=== PATIENT | female | born 1960 | race Caucasian/White ===

== ENCOUNTER 2021-03-31 16:51 | Inpatient (IN) | payer BC ==
[~2021-03-31] VITALS: Ht 160 cm; Wt 59.1 kg
[2021-03-31] MEDS ORDERED: LOSA50TA88 PO (17:03)
[2021-03-31] MEDS ORDERED: LEVO50TA5 PO (17:03)
[2021-03-31] MEDS ORDERED: NAPROXEN 250 MG TAB PO ONE (18:25)
[2021-03-31] MEDS ORDERED: ONDANSETRON 4 MG ORAL DISINTEGRATING TAB PO ONE (18:25)
--- NOTE | 2021-03-31 20:05 | REP ---
INDICATION: fall/trauma COMPARISON: None. TECHNIQUE: Frontal view of the pelvis with neutral and frog lateral views of the right hip. FINDINGS: Pelvis appears intact. Left hip demonstrates moderate arthritic degenerative changes. The right hip demonstrates moderate early advanced arthritic changes and a subtle impaction fracture through the femoral neck cannot be excluded. IMPRESSION: Degenerative changes to the bilateral hips (right greater than left). Cannot exclude subtle impaction fracture through the right femoral neck. <Electronically signed by Henrry Gimenez > 03/31/212000
--- NOTE | 2021-03-31 20:33 | REPVR ---
PROCEDURE INFORMATION: Exam: CT Right Lower Extremity Without Contrast, Hip Exam date and time: 03/31/2021 8:16 PM Age: 60 years old Clinical indication: Injury or trauma; Fall; Blunt trauma; Hip; Right TECHNIQUE: Imaging protocol: CT of the Right lower extremity without contrast was performed. Exam focused on the hip. Radiation optimization: All CT scans at this facility use at least one of these dose optimization techniques: automated exposure control; mA and/or kV adjustment per patient size (includes targeted exams where dose is matched to clinical indication); or iterative reconstruction. COMPARISON: CR Hip,AP,LAT to include Pelvis 03/31/2021 5:31 PM FINDINGS: Bones/joints: There is osteophyte formation and cystic degenerative change of the right acetabulum. There is an acute subcapital fracture right proximal femur involving the right femoral neck especially at the posterior cortex. There is mild impaction at the fracture, however, very little displacement or separation. Soft tissues: Soft tissue swelling. Urinary bladder: Normal appearing urinary bladder. IMPRESSION: Subcapital fracture right proximal femur with mild impaction. Electronically signed by: Jose C Gustafson On 03/31/2021 20:33:02 PM
[2021-03-31 21:21] LABS: BASO % 0.2 % (0.0-1.0); HEMATOCRIT 35.2 % (36.0-47.0); HEMOGLOBIN 11.9 g/dl (12.0-15.5); LYMPH # 0.8 10^3/uL (1.5-5.0); MEAN CORPUSCULAR HEMOGLOBIN 29.3 pg (27.0-33.0); MEAN CORPUSCULAR HGB CONC 33.8 g/dl (32.0-36.5); MEAN CORPUSCULAR VOLUME 86.7 fl (80.0-96.0); MONO # 0.5 10^3/uL (0.0-0.8); MONO % 4.9 % (2.0-8.0); NEUTROPHILS % 86.5 % (36.0-66.0); PLATELET COUNT, AUTOMATED 269 10^3/uL (150-450); RED BLOOD COUNT 4.06 10^6/uL (4.00-5.40); WHITE BLOOD COUNT 10.4 10^3/uL (4.0-10.0)
[2021-03-31 21:42] LABS: ALBUMIN 4.7 GM/DL (3.2-5.2); ALT/SGPT 24 U/L (12-78); BILIRUBIN,DIRECT 0.2 MG/DL (0.0-0.2); BILIRUBIN,TOTAL 0.8 MG/DL (0.2-1.0); BLOOD UREA NITROGEN 8 MG/DL (7-18); CALCIUM LEVEL 9.4 MG/DL (8.5-10.1); CARBON DIOXIDE LEVEL 25 MEQ/L (21-32); CHLORIDE LEVEL 101 MEQ/L (98-107); CREATININE FOR GFR 0.58 MG/DL (0.55-1.30); GLOMERULAR FILTRATION RATE > 60.0 (>51); GLUCOSE, FASTING 114 MG/DL (70-100); POTASSIUM SERUM 3.9 MEQ/L (3.5-5.1); SODIUM LEVEL 134 MEQ/L (136-145); TOTAL PROTEIN 7.5 GM/DL (6.4-8.2)
[2021-03-31] MEDS ORDERED: MOM 30ML SUSPENSION UDC PO PRN (21:50)
[2021-03-31] MEDS ORDERED: PERCOCET 5MG/325MG TAB PO PRN (21:50)
[2021-03-31] MEDS ORDERED: MAALOX 30 ML SUSP *UDC PO PRN (21:50)
--- NOTE | 2021-03-31 22:03 | HPEPDOC ---
[facility] Medical History & Physical Date of Admission March 31, 2021 Date of Service: March 31, 2021 History and Physical CHIEF COMPLAINT: R hip pain HISTORY OF PRESENT ILLNESS: 60 yo F with PMHx of HTN, hypothyroidism, presented to ER with R hip pain after falling while walking on uneven ground. She denies head injury, LOC, chest pain, SOB, palpitations, or lightheadedness at the time of the fall. Her pain is well controlled with morphine. CT hip imaging shows a R proximal femur fracture with mild impaction. Orthopedic surgery consulted from the ER. Patient will be admitted to hospitalist service for medical intake and pain control. PAST MEDICAL HISTORY: HTN Hypothyroidism PAST SURGICAL HISTORY: R ovarian cyst removal SOCIAL HISTORY: denies smoking, illicits social etoh use FAMILY HISTORY: reviewed with patient, no relevant hx identified ALLERGIES: Please see below. REVIEW OF SYSTEMS: 10 point ROS completed, relevant findings are noted in the HPI. HOME MEDICATIONS: Please see below. PHYSICAL EXAMINATION: VITAL SIGNS: please see below GENERAL APPEARANCE: calm, comfortable HEENT: PERRLA, EOMI. CARDIOVASCULAR: RRR, normal S1, S2. LUNGS: CTAB, no wheeze, no rales. ABDOMEN: soft, non tender, non distended. MUSCULOSKELETAL: R hip pain, no rotation of leg. EXTREMITIES: pulses 2+ bilaterally, no cyanosis, no swelling. NEUROLOGICAL: no focal neuro deficits. CN2-12 intact. R leg movement limited by pain PSYCHIATRIC: calm, pleasant, appropriate LABORATORY DATA: See below. IMAGING: CT hip wo contrast (03/31/21): FINDINGS: Bones/joints: There is osteophyte formation and cystic degenerative change of the right acetabulum. There is an acute subcapital fracture right proximal femur involving the right femoral neck especially at the posterior cortex. There is mild impaction at the fracture, however, very little displacement or separation. Soft tissues: Soft tissue swelling. Urinary bladder: Normal appearing urinary bladder. IMPRESSION: Subcapital fracture right proximal femur with mild impaction Hip/Pelvis XR (03/31/21): Degenerative changes to the bilateral hips (right greater than left). Cannot exclude subtle impaction fracture through the right femoral neck. MICROBIOLOGY: Please see below. ASSESSMENT: 60 yo F with PMHx of HTN, hypothyroidism, admitted with R proximal femoral neck fracture. . PLAN: R femur fracture - XR, CT hip showing proximal femoral neck fracture - mild leukocytosis, likely reactive - pain control morphine, percocet - Orthopedic surgery consultation - NPO after midnight - IVF stated - PT/OT post op Hypertension - BP slightly elevated likely 2/2 pain - resume home dose losartan Hypothyroidism - resume home levothyroxine DVT ppx: SCDs. TEDs. Chemoppx after surgery Code status: FULL CODE Dispo: pending clinical improvement. Vital Signs Vital Signs Date Time Temp Pulse Resp B/P (MAP) Pulse Ox O2 Delivery O2 Flow Rate FiO2 03/31/21 17:23 03/31/21 16:51 97.8 96 18 98 Room Air Laboratory Data Labs 24H Laboratory Tests 2 03/31/21 20:34: Immature Granulocyte % (Auto) 0.4, Neutrophils (%) (Auto) 86.5H, Lymphocytes (%) (Auto) 8.0L, Monocytes (%) (Auto) 4.9, Eosinophils (%) (Auto) 0.0, Basophils (%) (Auto) 0.2, Neutrophils # (Auto) 9.0H, Lymphocytes # (Auto) 0.8L, Monocytes # (Auto) 0.5, Eosinophils # (Auto) 0.0, Basophils # (Auto) 0.0, Nucleated Red Blood Cells % (auto) 0.0, Anion Gap 8, Glomerular Filtration Rate > 60.0, Calcium Level 9.4, Total Bilirubin 0.8, Direct Bilirubin 0.2, Aspartate Amino Transf (AST/SGOT) 21, Alanine Aminotransferase (ALT/SGPT) 24, Alkaline Phosphatase 72, Total Protein 7.5, Albumin 4.7, Albumin/Globulin Ratio 1.7, Coronavirus (COVID-19)(PCR) NEGATIVE CBC/BMP Laboratory Tests 03/31/21 20:34 Home Medications Scheduled Levothyroxine Sodium (Levothyroxine Sodium) 50 Mcg Tablet, 50 MCG PO QAM Losartan Potassium (Losartan Potassium) 50 Mg Tablet, 50 MG PO DAILY Allergies Coded Allergies: No Known Allergies (Unverified , 03/31/21) A-FIB/CHADSVASC A-FIB History Current/History of A-Fib/PAF?: No Current PO Anticoag Therapy: No TANYA MONIQUE MD March 31, 2021 22:03
[2021-03-31] MEDS: NS 1,000 ML IV SCH (22:24)
[2021-03-31 23:29] VITALS: BP 172/94
[2021-04-01] VITALS (7 sets, daily range): BP systolic 126–159; BP diastolic 82–92
[2021-04-01] MEDS: ACETAMINOPHEN TAB 650MG DOSE (2X325MG) PO PRN ×4 (00:02→22:30)
[2021-04-01] MEDS: KETOROLAC 30 MG/ML 1ML VIAL IV PRN ×2 (04:17→12:52)
[2021-04-01] MEDS: NS 1,000 ML IV SCH ×2 (04:47→12:51)
[2021-04-01] MEDS: LEVOTHYROXINE 50MCG TABLET (0.05MG) PO SCH (06:36)
[2021-04-01] MEDS: DOCUSATE SODIUM 100MG CAPSULE PO SCH ×2 (08:48→22:20)
[2021-04-01] MEDS: LOSARTAN 50MG TABLET PO SCH (08:48)
--- NOTE | 2021-04-01 10:44 | ER ---
ER CONSULTATION DATE: 03/31/2021 TIME OF CONSULT: 10 p.m. CONSULTING SERVICE: Orthopedic surgery. CONSULTING PHYSICIAN: Guy Gomez MD HISTORY OF PRESENT ILLNESS: This is a 60-year-old female who sustained a ground-level fall while hiking on March,. She sustained a right nondisplaced closed femoral neck fracture (Garden type 2). She had difficulty bearing weight after the injury and presented to [facility] Emergent Department for further evaluation and care. Orthopedic surgery was consulted for the aforementioned injury and indicated for right femoral neck closed reduction and percutaneous screw fixation. MEDICAL HISTORY: Includes hypertension, lumbago, hypothyroidism. SURGICAL HISTORY: Denied. SOCIAL HISTORY: She is a social drinker, nonsmoker, non-IV drug user. ALLERGIES: NONE. CURRENT MEDICATIONS: 1. Medication for hypertension. 2. Medication for hypothyroidism. REVIEW OF SYSTEMS: 14-point review of systems negative unless otherwise described in HPI above. PHYSICAL EXAMINATION: The patient is alert and oriented to person, time and placed. The patient had obligatory right hip flexion, external rotation, abduction right hip pain on presentation. She was otherwise neurovascularly intact to the right lower extremity. She had 5/5 motor strength to the EHL, FHL, tibialis anterior, gastrocnemius and peroneal musculature. She had sensation intact to light touch to deep and superficial peroneal, sural, saphenous and tibial nerve distributions. RADIOGRAPHS: AP pelvis radiographs demonstrate nondisplaced but complete right femoral neck fracture with minimal valgus impaction of the superior neck. I reviewed these images myself. CT scan confirms the above findings. IMPRESSION: 60-year-old female with right complete nondisplaced femoral neck fracture. PLAN: Given the patient's femoral neck fracture and pain with weightbearing and her active status, the patient is a good candidate for right hip closed reduction, percutaneous screw fixation when time and space available. Ideally this will happen within the next 48 hours. The patient will be optimized and admitted by the Hospitalist Service. She will likely undergo surgical intervention for the right hip fracture. Her care will be transferred to Dr. Eaton who has agreed to evaluate the patient and perform the necessary intervention as required.
--- NOTE | 2021-04-01 16:19 | IPNPDOC ---
Text Note Date of Service The patient was seen on 04/01/21. NOTE Subjective: -No acute complaints, pain well controlled Objective: VITAL SIGNS: please see below GENERAL APPEARANCE: calm, comfortable HEENT: PERRLA, EOMI. CARDIOVASCULAR: RRR, normal S1, S2. LUNGS: CTAB, no wheeze, no rales. ABDOMEN: soft, non tender, non distended. MUSCULOSKELETAL: R hip pain, no rotation of leg. EXTREMITIES: pulses 2+ bilaterally, no cyanosis, no swelling. NEUROLOGICAL: no focal neuro deficits. CN2-12 intact. R leg movement limited by pain PSYCHIATRIC: calm, pleasant, appropriate LABORATORY DATA: Reviewed IMAGING: CT hip wo contrast (03/31/21): FINDINGS: Bones/joints: There is osteophyte formation and cystic degenerative change of the right acetabulum. There is an acute subcapital fracture right proximal femur involving the right femoral neck especially at the posterior cortex. There is mild impaction at the fracture, however, very little displacement or separation. Soft tissues: Soft tissue swelling. Urinary bladder: Normal appearing urinary bladder. IMPRESSION: Subcapital fracture right proximal femur with mild impaction Hip/Pelvis XR (03/31/21): Degenerative changes to the bilateral hips (right greater than left). Cannot exclude subtle impaction fracture through the right femoral neck. MICROBIOLOGY: Please see below. ASSESSMENT: 60 yo F with PMHx of HTN, hypothyroidism, admitted for R proximal femoral neck fracture pending orthopedic surgery today. PLAN: R femur fracture - XR, CT hip showing proximal femoral neck fracture - mild leukocytosis, likely reactive - pain control morphine, percocet PRN - Orthopedic surgery consulted, pending surgery today - NPO after midnight - IVF - PT/OT post op Hypertension - continue home losartan Hypothyroidism - continue home levothyroxine DVT ppx: SCDs and TEDs. Code status: FULL CODE Dispo: pending surgery VS,Fishbone, I+O VS, Fishbone, I+O Laboratory Tests 03/31/21 20:34 Vital Signs Date Time Temp Pulse Resp B/P (MAP) Pulse Ox O2 Delivery O2 Flow Rate FiO2 04/01/21 08:48 148/88 04/01/21 08:47 84 04/01/21 06:00 98.3 17 99 Room Air I&O- Last 24 Hours up to 6 AM 04/01/21 05:59 Intake Total 125 ml Balance 125 ml TOLU GR MD April 01, 2021 12:17
--- NOTE | 2021-04-01 18:45 | CR ---
CONSULTATION DATE: 04/01/2021 CHIEF COMPLAINT: Right femoral neck fracture. HISTORY OF PRESENT ILLNESS: This 60-year-old female had a ground-level fall. She tripped on even ground. No head injury or loss of consciousness, shortness of breath or chest pain. She fell directly on the right side. In the ED was found to have a femoral neck fracture on CT scan. PAST MEDICAL HISTORY: Per the Hospitalist note and includes hypertension, hypothyroidism. MEDICATIONS: 1. Levothyroxine. 2. Losartan. ALLERGIES: No known drug allergies. PAST SURGICAL HISTORY: Right ovarian cyst removal. SOCIAL HISTORY: Denies smoking. She is here with her . Some very mild anterior hip discomfort prior to this fall. PHYSICAL EXAMINATION: This is a well-appearing 60-year-old female in no acute distress. She is alert and oriented. Vital signs are stable. There is a closed injury to right hip. No swelling or ecchymosis. Foot is warm, well-perfused, good tibialis and posterior pulse. Normal sensation on the dorsum and plantar aspect of the right foot. She is able to wiggle her toes, dorsiflex and plantar flex her foot appropriately. LABORATORY DATA: Laboratory examination revealed a hemoglobin of 11.9. COVID is negative. Hip and pelvis x-rays as well as CT scan were reviewed. This demonstrates subcapital fracture of right proximal femur with mild impaction. ASSESSMENT AND PLAN: This is a 60-year-old female with a nondisplaced right femoral neck fracture with slight impaction. She is recommended for surgical fixation to prevent further displacement or possibly increased risk of osteonecrosis of the femoral head. The pros and cons, risks and benefits of nonsurgical treatment as well as operative open reduction internal fixation were discussed. Surgical risks include but are not limited to infection, pain, stiffness, weakness, damage to surrounding structures, neurovascular injury, delayed, malunion or nonunion, osteonecrosis, osteoarthritis, hardware irritation, hardware failure, need for further surgery, anesthetic risk, blood clots, and other risks as well as need for further or revision surgery. She understands and wished to proceed. I marked the right lower extremity and she signed the consent form. We also discussed the pros and cons, risks and benefits of possible need for blood transfusion. The risks include but are not limited to infection, allergic reaction and fever. She wished to go ahead with possible need for blood products and signed that consent as well. For now, I am going to keep her fasting. I will let the operating room know about the case, and we will plan to perform the case within the next 48 hours ideally. We also discussed the prognosis and recovery associated with this. [place] out of [place] and the support she may need after surgery. Her and her understand, they had no further questions.
[2021-04-01] MEDS ORDERED: propofoL 200 MG/20 ML VIAL As Ordered ONE ×2 (19:08→19:09)
[2021-04-01] MEDS ORDERED: MIDAZOLAM INJ 2MG/2ML VIAL (J2250 PER 1MG) As Ordered ONE (19:08)
[2021-04-01] MEDS ORDERED: dexameTHASONE 4 MG/ML 1ML VIAL (J1100 PER 1MG) As Ordered ONE (19:09)
[2021-04-01] MEDS ORDERED: ONDANSETRON 4MG/2ML VIAL As Ordered ONE (19:09)
[2021-04-01] MEDS ORDERED: fentaNYL 100 MCG/2 ML INJECTION (J3010) As Ordered ONE (19:09)
[2021-04-01] MEDS ORDERED: KETAMINE HCL 200 MG/20 ML VIAL As Ordered ONE (19:25)
[2021-04-01] MEDS ORDERED: ceFAZolin 2 GM/D5W 50 ML IV BAG (J0690 PER 500MG) As Ordered ONE (20:05)
[2021-04-01] MEDS ORDERED: ACETAMINOPHEN 1000MG 100ML IV BTL (OFIRMEV) (J0131 PER 10MG) As Ordered ONE (20:35)
[2021-04-01] MEDS ORDERED: TRANEXAMIC ACID 100 MG/ML 10ML VIAL As Ordered ONE (20:36)
--- NOTE | 2021-04-01 20:55 | ROOPDOC ---
[facility] Report Of Operation Report of Operation DATE OF PROCEDURE: 04/01/21 PREPROCEDURE DIAGNOSES: Right femoral neck fracture. POSTPROCEDURE DIAGNOSES: Same. PROCEDURE: Right hip open reduction internal fixation [Synthes 7.3 mm cannulated screws]. SURGEON: Dr. Julian Romero MD [employer]NER: ANESTHESIA: Spinal anesthetic. Dr WALLS. ESTIMATED BLOOD LOSS: Approximately 20 mL. COMPLICATIONS: None. REMARKS: None. PROCEDURE NOTE: This 60-year-old female fell sustaining a minimally displaced right femoral neck fracture. We discussed the pros and cons risks and benefits of nonoperative versus surgical management. She wished to proceed. I spoke to her and her prior to and after the surgery. They had no further question s I marked the right lower extremity and proceeded to surgery. DESCRIPTION OF PROCEDURE: The patient was brought to the operating room theater. There administered a spinal anesthetic. 2 g of IV Ancef was given. Patient was placed supine on the traction set of right leg in traction richey but without traction and the left leg attached to the post of the bed in scissoring position and appropriately padded on both sides. AP and lateral x-rays taken of the right hip to confirm no displacement. Right lower extremity was prepped and draped in the usual sterile fashion with chlorhexidine preparatory solution allowing over 3 minutes drying time prior to draping. A shower curtain type drape was used with Ioban. Preoperative timeout was performed to confirm the site, the patient, and the surgery. Began by making a small incision laterally. I passed three 3.2 mm partially threaded guidewires in an inverted triangle fashion at the lateral cortex staying just proximal to the level of the lesser trochanter up into the femoral head and neck and subchondral bone. The inferior screw passed along the inferior calcar in the mid aspect of the neck and the posterior screw was slightly superior to this and posterior into the good bone of the femoral neck. The screws measured 80 mm, 75 mm, and 70 mm. I used the short thread screws. These were all Synthes 7.3 mm partially threaded cannulated screws. I slightly backed off the guidewires. I ensured no screw penetration by doing the near far technique under live fluoroscopy to ensure no screw penetration. I backed out the guidewires fully and took final AP and lateral radiographs. All screws achieved good solid bite and compression at the fracture. Wounds were thoroughly irrigated. Subcutaneous tissue closed with interrupted 2- 0 Vicryl suture and skin with arleth. Skin was cleaned with a wet and dry dressing followed by application of nonstick Adaptic gauze and occlusive bandage. The case was terminated and patient transferred off the operating room table and taken to postanesthetic care unit in stable condition. All sponge needle and instrument counts were correct. No complications. Postoperative plan: Partial weightbearing right lower extremity with a walker or crutches. Evaluation by PT and OT services while in hospital. Patient may be discharged home when they are safely mobilizing. Readmission under the hospitalist service. Xarelto 10 mg by mouth once daily for 35 days for venous thromboembolism prophylaxis and follow-up in the office in 2 weeks' time to check the wound repeat radiographs and discontinue the arleth. The [place] is from [place] of [place] so they will likely need follow-up by a separate orthopedic surgeon and help with discharge planning. JULIAN ROMERO MD April 01, 2021 20:55
[2021-04-01] MEDS ORDERED: ONDANSETRON 4MG/2ML VIAL IV PRN ×2 (21:05)
[2021-04-01] MEDS ORDERED: fentaNYL 100 MCG/2 ML INJECTION (J3010) IV PRN (21:05)
[2021-04-01] MEDS ORDERED: LR 1,000 ML IV SCH (21:05)
[2021-04-01] MEDS ORDERED: MORPHINE 2 MG/ML 1ML VIAL (J2270) IV PRN (21:05)
[2021-04-01] MEDS: LR 1,000 ML IV SCH (21:05)
[2021-04-01] MEDS ORDERED: oxyCODONE 5MG TAB PO PRN (21:05)
[2021-04-01] MEDS ORDERED: PERCOCET 5MG/325MG TAB PO PRN (21:05)
[2021-04-02 00:30] VITALS: BP 140/82
[2021-04-02] MEDS: ACETAMINOPHEN TAB 650MG DOSE (2X325MG) PO PRN ×2 (03:44→08:02)
[2021-04-02 04:00] VITALS: BP 144/92
[2021-04-02] MEDS: LR 1,000 ML IV SCH (05:05)
[2021-04-02] MEDS: LEVOTHYROXINE 50MCG TABLET (0.05MG) PO SCH (06:41)
[2021-04-02] MEDS ORDERED: traMADol 50 MG TAB PO PRN (07:45)
[2021-04-02] MEDS ORDERED: IBUPROFEN 800 MG TAB PO PRN (08:20)
[2021-04-02 08:25] LABS: BASO % 0.2 % (0.0-1.0); HEMATOCRIT 33.8 % (36.0-47.0); HEMOGLOBIN 11.3 g/dl (12.0-15.5); LYMPH # 0.7 10^3/uL (1.5-5.0); LYMPH % 11.6 % (24.0-44.0); MEAN CORPUSCULAR HEMOGLOBIN 29.7 pg (27.0-33.0); MEAN CORPUSCULAR HGB CONC 33.4 g/dl (32.0-36.5); MEAN CORPUSCULAR VOLUME 88.7 fl (80.0-96.0); MONO # 0.3 10^3/uL (0.0-0.8); MONO % 4.3 % (2.0-8.0); NEUTROPHILS % 83.2 % (36.0-66.0); PLATELET COUNT, AUTOMATED 248 10^3/uL (150-450); RED BLOOD COUNT 3.81 10^6/uL (4.00-5.40)
[2021-04-02 08:30] VITALS: BP 149/78
[2021-04-02] MEDS: SENOKOT S TAB PO SCH ×2 (08:48→20:46)
[2021-04-02] MEDS: LOSARTAN 50MG TABLET PO SCH (08:48)
--- NOTE | 2021-04-02 08:54 | IPNPDOC ---
Subjective Date Seen The patient was seen on 04/02/21. Subjective Chief Complaint/HPI No complaints this morning except for some pain at the fracture site in the right proximal thigh. Objective Physical Examination General Exam: Positive: Alert, Cooperative, No Acute Distress Eye Exam: Positive: PERRLA, Conjunctiva & lids normal, EOMI; Negative: Sclera icteric ENT Exam: Positive: Atraumatic, Mucous membr. moist/pink, Pharynx Normal Neck Exam: Positive: Supple; Negative: JVD, thyromegaly Chest Exam: Positive: Clear to auscultation, Normal air movement Heart Exam: Positive: Rate Normal, Regular Rhythm, Normal S1, Normal S2; Negative: Murmurs, Rubs Abdomen Exam: Positive: Normal bowel sounds, Soft; Negative: Tenderness, Hepatospenomegaly Extremity Exam: Negative: Clubbing, Cyanosis, Edema Assessment /Plan Assessment 60 yo F with PMHx of HTN, hypothyroidism, had a mechanical fall and had R proximal femoral neck fracture s/p ORIF o 04/01/21. Right femoral neck fracture after a mechanical fall s/p ORIF on 04/01/21 DVT Prophylaxis with xarelto pain control with tylenol, tramadol and ibuprofen PT/OT Ortho recommendation " Partial weightbearing right lower extremity with a walker or crutches. Evaluation by PT and OT services while in hospital. Patient may be discharged home when they are safely mobilizing. Readmission under the hospitalist service. Xarelto 10 mg by mouth once daily for 35 days for venous thromboembolism prophylaxis and follow-up in the office in 2 weeks' time to check the wound repeat radiographs and discontinue the arleth. The [place] so they will likely need follow-up by a separate orthopedic surgeon and help with discharge planning". Hypertension losartan Hypothyroidism Levothyroxine Plan/VTE VTE Prophylaxis Ordered?: Yes VS, I&O, 24H, Fishbone Vital Signs/I&O Vital Signs Date Time Temp Pulse Resp B/P (MAP) Pulse Ox O2 Delivery O2 Flow Rate FiO2 04/02/21 08:48 149/78 04/02/21 08:30 98.7 90 18 96 Room Air I&O- Last 24 Hours up to 6 AM 04/02/21 06:00 Intake Total 3135 ml Output Total 20 ml Balance 3115 ml Laboratory Data 24H LABS Laboratory Tests 2 04/02/21 08:02: Immature Granulocyte % (Auto) 0.7, Neutrophils (%) (Auto) 83.2H, Lymphocytes (%) (Auto) 11.6L, Monocytes (%) (Auto) 4.3, Eosinophils (%) (Auto) 0.0, Basophils (%) (Auto) 0.2, Neutrophils # (Auto) 5.0, Lymphocytes # (Auto) 0.7L, Monocytes # (Auto) 0.3, Eosinophils # (Auto) 0.0, Basophils # (Auto) 0.0, Nucleated Red Blood Cells % (auto) 0.0 CBC/BMP Laboratory Tests 04/02/21 08:02 ANA LANGSTON MD April 02, 2021 08:54
[2021-04-02 08:55] LABS: BLOOD UREA NITROGEN 7 MG/DL (7-18); CALCIUM LEVEL 8.4 MG/DL (8.5-10.1); CARBON DIOXIDE LEVEL 24 MEQ/L (21-32); CHLORIDE LEVEL 108 MEQ/L (98-107); CREATININE FOR GFR 0.63 MG/DL (0.55-1.30); GLOMERULAR FILTRATION RATE > 60.0 (>51); GLUCOSE, FASTING 179 MG/DL (70-100); POTASSIUM SERUM 3.8 MEQ/L (3.5-5.1); SODIUM LEVEL 138 MEQ/L (136-145)
--- NOTE | 2021-04-02 09:26 | REP ---
INDICATION: RIGHT HIP FRACTURE. COMPARISON: Comparison hip radiographs are from 31 Mar 2021.. TECHNIQUE: Two views. 195 seconds of fluoroscopy time is reported. FINDINGS: A sequence of 2 last image hold fluoroscopically obtained spot radiographs of the right hip document pinning for femoral neck fracture. IMPRESSION: Procedural imaging. <Electronically signed by Dylan Gomez > 04/02/21 0921
[2021-04-02 10:00] VITALS: BP 149/79
[2021-04-02] MEDS: NAPROXEN 250 MG TAB PO PRN (14:39)
[2021-04-02] MEDS: ACETAMINOPHEN 500 MG TAB PO SCH ×2 (16:45→20:47)
[2021-04-02] MEDS ORDERED: RIVAROXABAN 10 MG TAB (XARELTO) PO SCH (18:00)
[2021-04-02 22:00] VITALS: BP 176/85
[2021-04-03] MEDS: LEVOTHYROXINE 50MCG TABLET (0.05MG) PO SCH (05:10)
[2021-04-03] MEDS: NAPROXEN 250 MG TAB PO PRN (05:10)
[2021-04-03 06:00] VITALS: BP 136/88
[2021-04-03 06:55] LABS: BASO % 0.6 % (0.0-1.0); EOS # 0.1 10^3/uL (0.0-0.5); HEMATOCRIT 31.9 % (36.0-47.0); HEMOGLOBIN 10.5 g/dl (12.0-15.5); LYMPH # 1.6 10^3/uL (1.5-5.0); LYMPH % 31.6 % (24.0-44.0); MEAN CORPUSCULAR HEMOGLOBIN 29.2 pg (27.0-33.0); MEAN CORPUSCULAR HGB CONC 32.9 g/dl (32.0-36.5); MEAN CORPUSCULAR VOLUME 88.6 fl (80.0-96.0); MONO # 0.4 10^3/uL (0.0-0.8); MONO % 7.7 % (2.0-8.0); NEUTROPHILS % 58.7 % (36.0-66.0); PLATELET COUNT, AUTOMATED 240 10^3/uL (150-450); WHITE BLOOD COUNT 5.1 10^3/uL (4.0-10.0)
[2021-04-03 07:22] LABS: BLOOD UREA NITROGEN 10 MG/DL (7-18); CALCIUM LEVEL 8.7 MG/DL (8.5-10.1); CARBON DIOXIDE LEVEL 24 MEQ/L (21-32); CHLORIDE LEVEL 107 MEQ/L (98-107); CREATININE FOR GFR 0.58 MG/DL (0.55-1.30); GLOMERULAR FILTRATION RATE > 60.0 (>51); GLUCOSE, FASTING 101 MG/DL (70-100); POTASSIUM SERUM 3.6 MEQ/L (3.5-5.1); SODIUM LEVEL 139 MEQ/L (136-145)
[2021-04-03] MEDS ORDERED: ACET-683 PO (08:08)
[2021-04-03] MEDS ORDERED: XARE10TA PO (08:08)
[2021-04-03] MEDS ORDERED: NAPR-849 PO (08:08)
[2021-04-03 08:29] VITALS: BP 136/88
[2021-04-03] MEDS: SENOKOT S TAB PO SCH (08:29)
[2021-04-03] MEDS: ACETAMINOPHEN 500 MG TAB PO SCH ×2 (08:29→14:43)
[2021-04-03] MEDS: LOSARTAN 50MG TABLET PO SCH (08:29)
--- NOTE | 2021-04-03 09:28 | IPN ---
PROGRESS NOTE DATE: 04/03/2021 CHIEF COMPLAINT: Postop day 2 right hip cannulated screws for femoral neck fracture. HISTORY OF PRESENT ILLNESS: This 60-year-old female is doing well postoperative day 2. She has no questions or concerns. She is interested in possibly being discharged once she is safe. PHYSICAL EXAMINATION: Well-appearing 60-year-old female. She is sitting upright eating breakfast. She appears comfortable. The dressing is dry to the right hip. She is able to dorsiflex and plantarflex her foot. Normal sensation in her foot. ASSESSMENT AND PLAN: This 60-year-old female should continue to be partial to nonweightbearing to the right lower extremity and be discharged home when she is safely mobilizing. She understands and had no further questions.
[2021-04-03 14:00] VITALS: BP 149/83
--- NOTE | 2021-04-05 12:02 | DS.PDOC ---
Discharge Summary General Date of Admission March 31, 2021 at 21:49 Date of Discharge 04/03/21 Discharge Summary PROCEDURES PERFORMED DURING STAY: 04/01/21: Right hip open reduction internal fixation [Synthes 7.3 mm cannulated screws]. DISCHARGE DIAGNOSES: Right femoral neck fracture. HTN Hypothyroid COMPLICATIONS/CHIEF COMPLAINT: Femur Fracture Right. HOSPITAL COURSE: 60 yo F with PMHx of HTN, hypothyroidism, had a mechanical fall and had R proximal femoral neck fracture s/p ORIF on 04/01/21. Right femoral neck fracture after a mechanical fall s/p ORIF on 04/01/21 DVT Prophylaxis with xarelto pain control with tylenol, tramadol and ibuprofen PT/OT Ortho recommendation " Partial weightbearing right lower extremity with a walker or crutches. Evaluation by PT and OT services while in hospital. Patient may be discharged home when they are safely mobilizing. Readmission under the hospitalist service. Xarelto 10 mg by mouth once daily for 35 days for venous thromboembolism prophylaxis and follow-up in the office in 2 weeks' time to check the wound repeat radiographs and discontinue the arleth. The [place] so they will likely need follow-up by a separate orthopedic surgeon and help with discharge planning". Hypertension losartan Hypothyroidism Levothyroxine DISCHARGE MEDICATIONS: Please see below. ALLERGIES: Please see below. PHYSICAL EXAMINATION ON DISCHARGE: VITAL SIGNS: Please see below. General Exam: Positive: Alert, Cooperative, No Acute Distress Eye Exam: Positive: PERRLA, Conjunctiva & lids normal, EOMI; Negative: Sclera icteric ENT Exam: Positive: Atraumatic, Mucous membr. moist/pink, Pharynx Normal Neck Exam: Positive: Supple; Negative: JVD, thyromegaly Chest Exam: Positive: Clear to auscultation, Normal air movement Heart Exam: Positive: Rate Normal, Regular Rhythm, Normal S1, Normal S2; Negative: Murmurs, Rubs Abdomen Exam: Positive: Normal bowel sounds, Soft; Negative: Tenderness, Hepatosplenomegaly Extremity Exam: Negative: Clubbing, Cyanosis, Edema LABORATORY DATA: Please see below. ACTIVITY: Weight bearing as tolerated DIET: regular DISPOSITION: 01 Home, Self-Care. DISCHARGE INSTRUCTIONS: Follow up with Dr Eaton in 2 weeks DISCHARGE CONDITION: [Stable]. TIME SPENT ON DISCHARGE: 35 minutes. Vital Signs/I&Os Vital Signs Date Time Temp Pulse Resp B/P (MAP) Pulse Ox O2 Delivery O2 Flow Rate FiO2 04/03/21 14:00 97.5 80 18 149/83 (105) 98 04/03/21 06:00 Room Air Discharge Medications Scheduled Levothyroxine Sodium (Levothyroxine Sodium) 50 Mcg Tablet, 50 MCG PO QAM, (Reported) Losartan Potassium (Losartan Potassium) 50 Mg Tablet, 50 MG PO DAILY, (Reported) Rivaroxaban (Xarelto) 10 Mg Tablet, 10 MG PO DAILY@18 Scheduled PRN Acetaminophen (Acetaminophen) 500 Mg Tablet, 1,000 MG PO TIDP PRN for PAIN Naproxen (Naproxen) 250 Mg Tablet, 500 MG PO BIDP PRN for MODERATE/SEVERE PAIN (PS 5-10) Allergies Coded Allergies: No Known Allergies (Unverified , 03/31/21) ANA LANGSTON MD April 05, 2021 12:02
== END 2021-04-03 15:45 | disposition home or self-care (01) | DRG 308 ==
LOC: M ED 16:51 → M ED INP 21:49 → ENRESERV 22:41 → M MS5PR 23:32
PROVIDERS: ADMIT Family Medicine; ATTEND Internal Medicine Nephrology
PROC: 0QS604Z Reposition Right Upper Femur with Internal Fixation Device, Open Approach (ICD-10-PCS; principal; 2021-04-01 16:50)
DX: S72.001A Fracture of unspecified part of neck of right femur, initial encounter for closed fracture (principal); I10 Essential (primary) hypertension; E03.9 Hypothyroidism, unspecified; W18.30XA Fall on same level, unspecified, initial encounter; Y92.009 Unspecified place in unspecified non-institutional (private) residence as the place of occurrence of the external cause; Z79.899 Other long term (current) drug therapy